=== PATIENT | female | born 1985 | race Caucasian/White ===

== ENCOUNTER 2017-05-22 17:40 | Emergency (ER) | payer BC, OTHER ==
[~2017-05-22] VITALS: Ht 172.7 cm; Wt 99.8 kg
[2017-05-22] MEDS ORDERED: AMITRIPTYLINE H10 M3 PO (17:55)
[2017-05-22] MEDS ORDERED: DOXYCYCLINE 10100 MG PO (19:00)
[2017-05-22 19:16] VITALS: BP 145/91
== END 2017-05-22 19:16 | disposition home or self-care (01) ==
LOC: ER 17:40
DX: S91.312A Laceration without foreign body, left foot, initial encounter (principal); Z88.0 Allergy status to penicillin; W22.8XXA Striking against or struck by other objects, initial encounter; Y93.89 Activity, other specified; Y92.89 Other specified places as the place of occurrence of the external cause; Y99.8 Other external cause status